=== PATIENT | male | born 1980 | race Caucasian/White ===

== ENCOUNTER 2022-11-29 07:00 | Outpatient (NON) | payer OTHER, SELFPAY | END 2022-11-29 07:01 | disposition home or self-care (01) | LOC: ANHLAB 11-30 12:32 | PROVIDERS: PCP Internal Medicine; Visit Provider Nurse Practitioner | DX: D48.5 Neoplasm of uncertain behavior of skin (principal); D22.122 Melanocytic nevi of left lower eyelid, including canthus; D23.5 Other benign neoplasm of skin of trunk; Q82.8 Other specified congenital malformations of skin | CPT/HCPCS: 88305 ==

== ENCOUNTER 2024-08-07 00:18 | Day surgery (SDC) | payer BC, SELFPAY ==
[2024-07-30 14:20] VITALS: BMI 32.0
[2024-08-06 14:20] VITALS: BP 131/84; PULSE 65; RESP 18; TEMP 36.7; O2SAT 99
--- OUTSIDE RECORDS SUMMARY | 2024-08-07 00:21 | XMS_ITS | Clinical Summary ---
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 2-4 times a month 09/20/2021 Q2: How many drinks containi ng alcohol do you have on a typical day when you are drinking? 1 or 2 09/20/2021 Q3: How often do you have si x or more drinks on one occasion? Never 09/20/2021 Sex and Gender Information Value Date Recorded Sex Assigned at Not on file Legal Sex Male 8:47 AM CDT Gender Identity Not on file Sexual Orientation Not on file Obstetrics History Last Filed Vital Signs Vital Sign Reading Time Taken Comments Blood Pressure 116/72 09/20/2021 12:30 PM CDT Pulse 65 09/20/2021 12:30 PM CDT Temperature 36 C (96.8 F) 09/20/2021 12:00 PM CDT Respiratory Rate 20 09/20/2021 12:30 PM CDT Oxygen Saturation 98% 09/20/2021 12:30 PM CDT Inhaled Oxygen Concentration - - Weight 97.5 kg (215 lb) 09/09/2021 7:55 AM CDT Height 182.9 cm (6') 09/09/2021 7:55 AM CDT Body Mass Index 29.16 09/09/2021 7:55 AM CDT Plan of Treatment Health Maintenance Due Date Last Done Comments Colon Cancer Screening-Colonoscopy 1978 Depression Screening 1978 Hepatitis C Screening 1978 DTaP/Tdap/Td Vaccine (1 - Tdap) 1989 Hepatitis B Screening 01/25/1996 Regular Well Visit/Exam 18-64 01/25/1996 Influenza Vaccine (Season Ended) 2024 HPV Vaccines Aged Out No longer eligi ble based on patient's age to complete this topic Pneumococcal vaccine <65 Aged Out No longer eligible based on patient's age to complete this topic Medical Devices Implanted Type 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
--- OUTSIDE RECORDS SUMMARY | 2024-08-07 00:21 | XMS_ITS | Referral Summary ---
Author Organization [facility] Address [address] [place] [address] Care Team Providers Care Plexiglas Former Name Role Phone Kevan Chowdhury MD Primary Care Provider [phone] Allergies No known active allergies Medications rosuvastatin (CRESTOR) 10 mg tabletIndicatio ns:hyperlipidem ia Take 10 mg by mouth daily before breakfast 2 Active oxyCODONE-aceta minophen (PERCOCET) 5-325 mg per tabletIndicatio ns:Pain Take 1-2 tablets by mouth every 4 (four) hours as needed for pain 40 tablet 2 Active Active Problems Problem Noted Date Diagnosed Date Degenerative superior labral fmxjmfoc-ct-lnithhnll (SLAP) tear of left shoulder 08/30/2021 Overview (08/30/2021): Added automatically from request for surgery [id number] Biceps tendinitis of left upper extremity 2021 Overview (08/30/2021): Added automatically from request for surgery [id number] Social History Tobacco Use Types Packs/Day Years [...] on file Sexual Orientation Not on file Last Filed Vital Signs Vital Sign Reading [...] 09/09/2021 7:55 AM CDT Plan of Treatment Not on file Medical Devices Implanted Type 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
--- NOTE | 2024-08-07 09:12 | P.PNAN_ITS ---
Anes - Initial Pre Proc Eval Procedure: Operation Date: 08/07/24 10:30 Proposed Procedures p Screening Colonoscopy - Ravinder Puckett MD Date/Time: 08/07/24 09:12 Surgeon: Ravinder Puckett MD Pre Op Diagnosis: Screening Patient Data Age: 44 Gender: M Height: 1.83 m Weight: 108.6 kg Last Vital Signs Temp 98.0 F 08/06/24 14:20 Pulse 65 08/06/24 14:20 Resp 18 08/06/24 14:20 BP 131/84 08/06/24 14:20 Pulse Ox 99 08/06/24 14:20 O2 Del Method Room Air 08/06/24 14:20 Allergies Allergy/AdvReac Type Severity Reaction Status Date / Time No Known Allergies Allergy Verified 08/07/24 09:02 Home Medications ?Medication ?Instructions ?Recorded ?Confirmed ?Type rosuvastatin 10 mg tablet See Rx Instructions .Route 05/29/24 08/07/24 Rx .COMPLEX #90 tabs Patient hx anesthesia problems: none Family hx anesthesia problems: none Results Review: All pre-operative results and documents have been reviewed as part of the pre- operative evaluation. [facility] Past Medical History Medical History Dyslipidemia Surgical History Surgical History History of shoulder surgery (2021) Family History Family History Grandparent Diabetes mellitus Cancer Grandparent Cancer Other Family history of coronary artery disease Family history of malignant neoplasm of male breast Social History Social History Social History: 04/11/24 very confident with medical forms Years smoked: 20 Smoking status: Never smoker Tobacco type: cigarettes Alcohol intake: current Drinks per week: 6 Substance use: never Substance use type: does not use Do You Feel Safe in your Home?: Yes Lack of Transportation: No Lack of Food: Never True Current Housing: I Have Housing Concerned About Future Housing: No Difficulty Paying Gas/Electric Bills: No Difficulty Paying for Meds: No Currently Unemployed: No Education: Bachelor's Degree Difficulty w/ Childcare or Family Care: No Living arrangements: with family Occupation/Education: occupation 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 [employer] Gender identity (if verbalized by the patient): Male Sexual Orientation (if Verbalized by the Patient): Straight or Heterosexual Anes - Eval Final PreProcedure Day of Procedure 08/07/24 09:12 Patient weight: obese Lungs: normal air movement Airway: Mallampati scale class II Neurological: alert and oriented Last oral intake: >/= 8 hours ASA classification: II Emergent: no Anesthetic plan: proceed Anesthesia type and monitoring: general GIVS and standard monitoring Results Review: All pre-operative results and documents have been reviewed as part of the pre- operative evaluation. Hyperlipidemia. 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 Informed Consent: The patient's anesthetic plan and its attendant risks and benefits were discussed with the patient/family/POA. Questions were solicited and answers provided to the satisfaction of the patient/family/POA.
[2024-08-07] MEDS: LACTATED RINGERS 1,000 ML 150 ML IV CONT (09:13)
--- NOTE | 2024-08-07 09:32 | P.HP_ITS ---
H&P: HPI History of Present Illness Date/Time: 08/07/24 09:32 Chief Complaint: Screening colonoscopy Narrative: This is the patient's first colonoscopy. There are no GI symptoms and there is no family history of colorectal cancer. Review of Systems Review of Systems: All systems reviewed & are unremarkable except as noted in HPI and below PMFSH Past Medical History Medical History Dyslipidemia Surgical History Surgical History History of shoulder surgery (2021) Family History Family History Grandparent Diabetes mellitus Cancer Grandparent Cancer Other Family history of coronary artery disease Family history of malignant neoplasm of male breast Social History Social History Social History: 04/11/24 very confident with medical forms Years smoked: 20 Smoking status: Never smoker Tobacco type: cigarettes Alcohol intake: current Drinks per week: 6 Substance use: never Substance use type: does not use Do You Feel Safe in your Home?: Yes Lack of Transportation: No Lack of Food: Never True Current Housing: I Have Housing Concerned About Future Housing: No Difficulty Paying Gas/Electric Bills: No Difficulty Paying for Meds: No Currently Unemployed: No Education: Bachelor's Degree Difficulty w/ Childcare or Family Care: No Living arrangements: with family Occupation/Education: occupation 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 [employer] Gender identity (if verbalized by the patient): Male Sexual Orientation (if Verbalized by the Patient): Straight or Heterosexual Meds Home Medications and Allergies Home Medications ?Medication ?Instructions ?Recorded ?Confirmed ?Type rosuvastatin 10 mg tablet See Rx Instructions .Route 05/29/24 08/07/24 Rx .COMPLEX #90 tabs Allergies Allergy/AdvReac Type Severity Reaction Status Date / Time No Known Allergies Allergy Verified 08/07/24 09:02 Vital Signs Vital Signs - 24 hr 08/06/24 14:20 Temperature 98.0 F Pulse Rate 65 Respiratory Rate 18 Blood Pressure 131/84 Pulse Oximetry 99 Oxygen Delivery Room Air Exam Const: General: cooperative and healthy appearing Resp: Effort & Inspection: normal respiratory effort and able to speak in complete sentences Auscultation: clear to auscultation bilaterally Cardio: Rate: regular rate Rhythm: regular rhythm GI: Inspection: normal to inspection GI Palp: No No hepatosplenomegaly present Auscultation: normal bowel sounds Rectal Exam: deferred Skin: General skin exam: normal color Psych: Appearance: grossly normal Mental Status: mental status grossly normal Assessment and Plan Assessment and plan (1) Encounter for screening colonoscopy: Code(s): Z12.11 - Encounter for screening for malignant neoplasm of colon Status: Acute Assessment and Plan: The patient is deemed a good candidate for the procedure. Consent signed. Will proceed.
[2024-08-07 09:50] VITALS: BP 117/77; PULSE 72; RESP 16; O2SAT 96
[2024-08-07 10:00] VITALS: BP 114/76; PULSE 68; RESP 16; O2SAT 97
[2024-08-07 10:10] VITALS: BP 129/85; PULSE 75; RESP 15; O2SAT 97
== END 2024-08-07 10:22 | disposition home or self-care (01) ==
PROVIDERS: PCP Nurse Practitioner Family; Referring Provider Nurse Practitioner Family; Visit Provider Internal Medicine Gastroenterology
PROC: 0DJD8ZZ Inspection of Lower Intestinal Tract, Via Natural or Artificial Opening Endoscopic (ICD-10-PCS; CPT 45378; principal; 2024-08-07 10:30)
DX: Z12.11 Encounter for screening for malignant neoplasm of colon (principal); E78.5 Hyperlipidemia, unspecified; E66.9 Obesity, unspecified; Z68.32 Body mass index [BMI] 32.0-32.9, adult; Z98.890 Other specified postprocedural states; Z80.3 Family history of malignant neoplasm of breast; Z82.49 Family history of ischemic heart disease and other diseases of the circulatory system
CPT/HCPCS: 45378; J2003; J2704; J7120